=== PATIENT | male | born 1955 | race Caucasian/White ===

== ENCOUNTER 2018-03-22 11:00 | Inpatient (IN) ==
[2018-03-22] MEDS ORDERED: Chlorhexidine Gluconate 2% 1 Pack (2 Cloths) TOPICAL ONE (11:49)
[2018-03-22] MEDS ORDERED: Metoprolol Tartrate 25 MG Tablet PO ONE (11:49)
[2018-03-22] MEDS ORDERED: Sodium Chloride 0.9% 2 ML Flush PRN IV.FLUSH (11:52)
[2018-03-22] MEDS ORDERED: Dextrose 5%/NaCl 0.9% Inj 1,000 ML IV.CONT SCH (12:00)
[2018-03-22] MEDS ORDERED: Sodium Chlor 0.9% Inj 500 ML IV.SIG SCH (12:00)
--- NOTE | 2018-03-22 13:06 | P.HPUP ---
The Pre-Admit History and Physical Examination regarding the above named patient was reviewed (including, but not limited to, vital signs, heart, lungs, co-morbid conditions), and upon re-examination it is noted that: the patient's condition has not significantly changed since the last examination.
[2018-03-22] MEDS ORDERED: Metoprolol Inj 5 MG/5 ML Vial IV.PUSH ONE (14:20)
[2018-03-22] MEDS ORDERED: Normosol-R pH 7.4 Inj 1,000 ML IV.CONT ONE (14:20)
[2018-03-22] MEDS ORDERED: Lidocaine PF 1% Inj 5 ML Syringe OTHER ONE (14:20)
[2018-03-22] MEDS ORDERED: Esmolol Bolus Inj 100 MG/10 ML Vial IV.PUSH ONE (14:20)
--- NOTE | 2018-03-22 14:38 | ECG ---
Date Performed: 03/22/2018 Time Performed: 12:19:46 PTAGE: 62 years EKG: SINUS BRADYCARDIA BORDERLINE ECG Compared to prior electrocardiogram, Rate has decreased an d nonspecific T-wave changes have improved. PREVIOUS TRACING : 07/31/2009 01.37 DOCTOR: Augustus Steele Interpretating Date/Time 03/22/2018 14:36:19
[2018-03-22] MEDS ORDERED: Sugammadex Inj 200 MG/2 ML Vial IV.PUSH ONE (14:51)
[2018-03-22] MEDS ORDERED: Potassium Chlor 20 mEq Premix 20 MEQ/100 ML PIGGYBACK IV.SIG PRN (16:36)
[2018-03-22] MEDS ORDERED: Naloxone Inj 0.4 MG/ML Vial IV.PUSH PRN (16:36)
[2018-03-22] MEDS ORDERED: Acetaminophen 325 MG Tablet PO PRN (16:36)
[2018-03-22] MEDS ORDERED: Potassium Chlor 40 mEq Premix 40 MEQ/100 ML PIGGYBACK IV.SIG PRN (16:36)
[2018-03-22] MEDS ORDERED: *morphine SULFATE 10 MG/ML PERIprocedure ONLY ONE (16:39)
[2018-03-22] MEDS ORDERED: Morphine Inj 30 MG/30 ML PCA.VIAL PCA ONE (16:45)
[2018-03-22] MEDS ORDERED: KCL 20 mEq/D5W/NaCl 0.9% Inj 1,000 ML ONE (16:45)
[2018-03-22] MEDS ORDERED: Morphine Inj 4 MG/ML Vial ONE (16:48)
[2018-03-22] MEDS ORDERED: fentaNYL Citrate Inj 100 MCG/2 ML Ampul ONE (16:48)
[2018-03-22] MEDS ORDERED: *Promethazine Inj 25 MG/ML Vial PERIprocedural use ONLY ONE (17:12)
[2018-03-22] MEDS: KCL 20 mEq/D5W/NaCl 0.9% Inj 1,000 ML IV.CONT SCH ×2 (17:15→23:21)
[2018-03-22] MEDS: Morphine Inj 30 MG/30 ML PCA.VIAL PCA PRN (17:17)
[2018-03-22] MEDS: Ketorolac Inj 30 MG/ML (IVP) Vial IV.PUSH PRN ×2 (17:35→23:24)
[2018-03-22] MEDS: Sodium Chloride 0.9% 2 ML Flush BID IV.FLUSH SCH (20:50)
[2018-03-23] MEDS: KCL 20 mEq/D5W/NaCl 0.9% Inj 1,000 ML IV.CONT SCH ×2 (06:10→09:42)
[2018-03-23 08:09] LABS: Baso % (Auto) 0.3 % (0.0-2.0); Hematocrit 35.7 % (39.0-51.0); Hemoglobin 12.2 gm/dL (13.0-17.0); Lymph # (Auto) 0.6 th/mm3 (1.0-4.8); Lymph % (Auto) 3.2 % (9.0-44.0); Mean Corpuscular HGB Conc 34.2 % (32.0-36.0); Mean Corpuscular Hemoglobin 31.7 pg (27.0-34.0); Mean Corpuscular Volume 92.7 fL (80.0-100.0); Mean Platelet Volume 9.1 fL (7.0-11.0); Mono # (Auto) 1.3 th/mm3 (0.0-0.9); Mono % (Auto) 7.5 % (0.0-8.0); Neut # (Auto) 15.7 th/mm3 (1.8-7.7); Platelet Count 179 th/mm3 (150-450); Red Blood Count 3.85 mil/mm3 (4.50-5.90); White Blood Count 17.7 th/mm3 (4.0-11.0)
[2018-03-23 08:37] LABS: Calcium 7.4 mg/dL (8.5-10.1); Carbon Dioxide 23.4 meq/L (21.0-32.0); Potassium 4.9 meq/L (3.5-5.1)
[2018-03-23] MEDS: Ketorolac Inj 30 MG/ML (IVP) Vial IV.PUSH PRN ×3 (08:53→21:37)
[2018-03-23] MEDS: Morphine Inj 30 MG/30 ML PCA.VIAL PCA PRN ×2 (08:54→23:59)
[2018-03-23] MEDS: Pantoprazole Inj 40 MG Vial IV.PUSH SCH (08:57)
[2018-03-23] MEDS: clonazePAM 0.5 MG Tablet PO SCH (09:01)
[2018-03-23] MEDS: Sodium Chloride 0.9% 2 ML Flush BID IV.FLUSH SCH (09:08)
[2018-03-23] MEDS: Budesonide-Formoterol 80/4.5 MCG 6.9 GM Inhaler INH SCH (09:25)
--- NOTE | 2018-03-23 09:42 | P.PNCS ---
Subjective Colorectal Surgery Post Op Day #: 1 Interval history: afebrile, VSS UO good ODESSA serous Objective Result Diagrams: 03/23/18 07:48 03/23/18 07:48 Objective Remarks: PE alert Abd - soft, wound dry, min tympany Assessment and Plan - Plan Imp: stable Post-op OOB resp Rx decr IVF Tx to floor
[2018-03-23] MEDS: Heparin - SQ 10,000 UNITS/ML Vial SQ SCH (21:36)
[2018-03-24] MEDS: KCL 20 mEq/D5W/NaCl 0.9% Inj 1,000 ML IV.CONT SCH ×3 (00:48→12:33)
[2018-03-24 06:16] LABS: Baso % (Auto) 0.1 % (0.0-2.0); Eos % (Auto) 0.1 % (0.0-4.0); Hematocrit 34.2 % (39.0-51.0); Hemoglobin 11.3 gm/dL (13.0-17.0); Lymph # (Auto) 1.4 th/mm3 (1.0-4.8); Lymph % (Auto) 11.1 % (9.0-44.0); Mean Corpuscular Hemoglobin 31.5 pg (27.0-34.0); Mean Corpuscular Volume 95.4 fL (80.0-100.0); Mean Platelet Volume 9.3 fL (7.0-11.0); Mono # (Auto) 1.1 th/mm3 (0.0-0.9); Mono % (Auto) 8.9 % (0.0-8.0); Neut # (Auto) 10.1 th/mm3 (1.8-7.7); Neut % (Auto) 79.8 % (16.0-70.0); Platelet Count 158 th/mm3 (150-450); Red Blood Count 3.58 mil/mm3 (4.50-5.90); White Blood Count 12.7 th/mm3 (4.0-11.0)
[2018-03-24 06:47] LABS: Calcium 7.7 mg/dL (8.5-10.1); Potassium 4.5 meq/L (3.5-5.1)
--- NOTE | 2018-03-24 07:29 | P.PNCS ---
Subjective Colorectal Surgery Post Op Day #: 2 Interval history: afebrile, VSS UO good +flatus Objective Result Diagrams: 03/24/18 05:46 03/24/18 05:46 Objective Remarks: PE alert Abd - soft, wound dry, min tympany ODESSA serous Assessment and Plan - Plan Imp: OOB resp Rx decr IVF Tx to floor start PO
[2018-03-24] MEDS: Heparin - SQ 10,000 UNITS/ML Vial SQ SCH ×2 (09:36→20:31)
[2018-03-24] MEDS: Pantoprazole Inj 40 MG Vial IV.PUSH SCH (09:36)
[2018-03-24] MEDS: clonazePAM 0.5 MG Tablet PO SCH (09:37)
[2018-03-24] MEDS: Budesonide-Formoterol 80/4.5 MCG 6.9 GM Inhaler INH SCH (09:52)
--- NOTE | 2018-03-24 10:06 | MP ---
cc: Danny Corado MD DATE OF OPERATION: 03/22/2018 PREOPERATIVE DIAGNOSIS: Cancer of the rectosigmoid. PROCEDURE: Exploratory laparotomy with a proctosigmoidectomy and low pelvic anastomosis. POSTOPERATIVE DIAGNOSIS: Cancer of the rectosigmoid guess. SURGEON: Danny Corado MD ESTHETICIAN PERMANENT MAKEUP ARTIST: Denzel Morrell MD DESCRIPTION OF PROCEDURE: The patient was placed in the supine position. After adequate general anesthesia, his legs were placed in universal stirrups and supported appropriately. The abdomen and perineum were then prepped with Betadine solution and draped in the usual sterile fashion. With Dr. Morrell's assistance, the abdomen was opened through an infraumbilical transverse incision, dividing the rectus muscles with electrocautery. Exploration revealed tattooing of the rectosigmoid just around the area of the anterior peritoneal reflection. There appeared to be a tumor palpable just at the area of the cul-de-sac. The proximal colon was palpated and felt to be pretty unremarkable. The small bowel was run from ligament of Treitz down to the ileocecal valve and felt to be normal. The liver had no palpable masses. The gallbladder was unremarkable. The stomach and duodenum were normal. The great vessels were of normal caliber and fairly soft to palpation. First, the sigmoid colon was mobilized medially by dividing along the white line of Toldt. The left ureter was identified and carefully preserved. Dissection then proceeded up to the left gutter, freeing the left colon off the retroperitoneum, taking down part of the splenic flexure. The right retroperitoneal space was then opened and the bowel dissected off the presacral fascia, preserving the presacral nerves. The pedicle from the superior hemorrhoidal vessel was identified and divided between Joaquina's, obtaining hemostasis with Vicryl ties. The bowel was then mobilized down toward the pelvic floor. At this point, Dr. Morrell inserted the sigmoidoscope and identified the distal end of the tumor just below the cul-de-sac. Dissection then obtained a margin below the tumor, taking the mesorectum with electrocautery and Vicryl ties as necessary for hemostasis. The bowel was then divided in the mid rectum between a pursestring suture device and a Pal clamp. The bowel was then sized to reach the rectum without tension and with good blood supply, dividing the marginal artery at the appropriate point and finally dividing the bowel between a pursestring suture device and a Pal clamp. The end of the bowel was sized to accept an EEA stapling anvil and this was secured with a pursestring suture. Dr. Morrell inserted the EEA stapling instrument transanally under direct vision, it was brought up to the end of the rectal pouch and the pursestring suture tied. The bowel was then aligned properly. The staple was then reassembled, the bowel aligned properly, the staple closed and fired upon withdrawal of 2 complete donuts of tissue was seen. Gentle insufflation did confirm an airtight anastomosis. The abdomen was then irrigated copiously with normal saline. Adequate hemostasis achieved at all sites. Igor-Preston drain placed down into the presacral space and brought out through a stab wound in the right lower quadrant and secured to the skin with a nylon suture. The transverse incision closed anatomically in 2 layers using #1 PDS stitches to reapproximate the respective fascial layers. On-Q catheters were placed into the rectus sheaths on both sides and brought up through a subcutaneous tunnel above the transverse incision. The subQ tissue was irrigated copiously and the skin closed with a running subcuticular Vicryl suture. Wounds were washed with normal saline and dried, sterile dressing of Telfa and gauze applied. The patient tolerated the procedure quite well and was brought to the recovery room in stable condition. Sponge and needle counts were correct at the end of the procedure. MD LAMIN Bojorquez/sv/ll , 07:40 AM , 07:50 AM
[2018-03-24] MEDS: Morphine Inj 30 MG/30 ML PCA.VIAL PCA PRN ×2 (19:29→21:58)
[2018-03-25] MEDS: KCL 20 mEq/D5W/NaCl 0.9% Inj 1,000 ML IV.CONT SCH ×3 (01:05→15:56)
[2018-03-25] MEDS: clonazePAM 0.5 MG Tablet PO SCH (08:47)
[2018-03-25] MEDS: Heparin - SQ 10,000 UNITS/ML Vial SQ SCH ×2 (08:47→21:10)
[2018-03-25] MEDS: Pantoprazole Inj 40 MG Vial IV.PUSH SCH (08:48)
[2018-03-25] MEDS: Budesonide-Formoterol 80/4.5 MCG 6.9 GM Inhaler INH SCH (08:49)
--- NOTE | 2018-03-25 16:33 | P.PNCS ---
Subjective Colorectal Surgery Post Op Day #: 3 Interval history: afebrile, VSS UO good ODESSA less +BM Objective Result Diagrams: 03/24/18 05:46 03/24/18 05:46 Objective Remarks: PE alert Abd - soft, wound dry, min tympany ODESSA serous, ON-Q dc'd Assessment and Plan - Plan Imp: OOB resp Rx decr IVF - hep lock Tx to floor start PO, adv
[2018-03-26] MEDS: KCL 20 mEq/D5W/NaCl 0.9% Inj 1,000 ML IV.CONT SCH (05:32)
[2018-03-26] MEDS: clonazePAM 0.5 MG Tablet PO SCH (08:32)
[2018-03-26] MEDS: Pantoprazole Inj 40 MG Vial IV.PUSH SCH (08:32)
[2018-03-26] MEDS: Heparin - SQ 10,000 UNITS/ML Vial SQ SCH (08:33)
[2018-03-26] MEDS: Budesonide-Formoterol 80/4.5 MCG 6.9 GM Inhaler INH SCH (08:52)
--- NOTE | 2018-03-26 09:35 | P.PNCS ---
Subjective Colorectal Surgery Post Op Day #: 4 Interval history: afebrile, VSS UO good +BM Objective Result Diagrams: 03/24/18 05:46 03/24/18 05:46 Objective Remarks: PE alert Abd - soft, wound dry, min tympany ODESSA serous - dc'd Assessment and Plan - Plan Imp: OOB resp Rx decr IVF - hep lock start PO, adv DC plans
== END 2018-03-26 10:16 | disposition home or self-care (01) ==
LOC: HSDI 11:00 → HCIS 18:22
PROVIDERS: ADMIT Colon & Rectal Surgery; ATTEND Colon & Rectal Surgery